=== PATIENT | male | born 1970 | race Hispanic/Latino ===

== ENCOUNTER 2023-12-26 11:41 | Inpatient (IN) | payer BC ==
[~2023-12-26] VITALS: Ht 175.3 cm; Wt 86.2 kg
[2023-12-26 12:57] LABS: BASOPHILS # (AUTO) 0.07 K/uL (0.00-0.20); BASOPHILS % (AUTO) 0.4 % (0.0-5.0); EOSINOPHILS # (AUTO) 0.18 K/uL (0.00-0.70); EOSINOPHILS % (AUTO) 1.1 % (0.0-8.0); IMMATURE GRANULOCYTE ABSOLUTE 0.16 K/uL (0-1); LYMPHOCYTES # (AUTO) 2.4 K/uL (1.0-4.8); MEAN CORPUSCULAR HEMOGLOBIN 29.5 pg (27.0-33.0); MEAN CORPUSCULAR HGB CONC 33.8 g/dL (32.0-36.0); MEAN CORPUSCULAR VOLUME 87.1 fL (79-99); MONOCYTES # (AUTO) 1.2 K/uL (0.1-1.0); MONOCYTES % (AUTO) 7.2 % (3.0-13.0); NEUTROPHILS # (AUTO) 12.1 K/uL (1.8-7.7); NEUTROPHILS % (AUTO) 75.3 % (40.0-77.0); PLATELET COUNT (AUTO) 349 K/uL (130-400); RED BLOOD CELL COUNT(AUTO) 4.48 MIL/uL (4.50-6.20); RED CELL DISTRIBUTION WIDTH 13.3 % (11.0-15.5); WHITE BLOOD COUNT (AUTO) 16.1 K/uL (4.8-10.8)
[2023-12-26 13:07] LABS: INR 0.97 (0.85-1.15); PROTHROMBIN TIME 10.5 SEC (9.6-11.6)
[2023-12-26 13:08] LABS: PARTIAL THROMBOPLASTIN TIME 28.4 SEC (26.3-35.5)
[2023-12-26 13:12] LABS: CREATININE 1.4 mg/dL (0.5-1.3); POTASSIUM 4.3 mmol/L (3.5-5.1)
[2023-12-26 13:24] LABS: ALBUMIN 3.5 g/dL (3.5-5.0); BILIRUBIN,TOTAL 0.6 mg/dL (0.2-1.0); MAGNESIUM 1.7 mg/dL (1.80-2.40); THYROID STIMULATING HORMONE 3.19 uIU/mL (0.36-3.74); TOTAL PROTEIN, SERUM 8.5 g/dL (6.0-8.3)
[2023-12-26 13:25] LABS: HEMOGLOBIN A1C 6.9 % (4.0-6.0)
[2023-12-26] MEDS ORDERED: 0.9% NACL 500ML IV.SOLN 500 ML IV SCH (13:30)
[2023-12-26] MEDS: 0.9%NACL 1000ML 1,000 ML IV SCH (13:51)
[2023-12-26] MEDS: ceFEPime HCL 2 GM VIAL IVPB SCH (13:52)
[2023-12-26] MEDS: LINEZOLID 600 MG/ISO-OSM 300 ML IV SCH (14:00)
[2023-12-26 14:29] LABS: ERYTHROCYTE SEDIMENTATION RATE 84 MM/HR (0-20)
[2023-12-26 15:56] LABS: SARS-CoV-2, RNA, NAAT POSITIVE SARS CoV-2 (NEGATIVE)
[2023-12-26 16:20] VITALS: BP 143/60; PULSE 96; RESP 20; TEMP 98.5
[2023-12-26] MEDS ORDERED: teTANUS/diphthERIA TOXOID [ADULT] 0.5 ML VIAL IM ONE (16:30)
[2023-12-26] MEDS: INSULIN humuLIN R 100 UNIT/ML 3ML SQ SCH (16:30)
[2023-12-26 16:44] LABS: ADD UA MICROSCOPIC YES; APPEARANCE,URINE CLEAR (CLEAR); BILIRUBIN,URINE NEGATIVE (NEGATIVE); COLOR,URINE LIGHT-YELLOW (YELLOW); GLUCOSE, URINE (UA) TRACE mg/dL (NEGATIVE); KETONES,URINE NEGATIVE (NEGATIVE); LEUKOCYTE ESTERASE ,URINE NEGATIVE Leu/uL (NEGATIVE); NITRATE,URINE NEGATIVE (NEGATIVE); OCCULT BLOOD,URINE NEGATIVE (NEGATIVE); PH,URINE 5.5 (5.0-8.0); PROTEIN,URINE 30 mg/dL (NEGATIVE); UROBILINOGEN,URINE 0.2 mg/dL (0.2-1.0)
[2023-12-26 16:50] LABS: RBC,URINE 0-1 /HPF (0-1); SQUAMOUS EPITHELIAL CELL,UR RARE /HPF (0-2); WBC,URINE 0-1 /HPF (0-1)
[2023-12-26 17:45] VITALS: O2SAT 97
[2023-12-26 17:50] VITALS: O2SAT 97
[2023-12-26] MEDS: morPHINE 2 MG SYG IVP PRN (18:26)
[2023-12-26 19:10] VITALS: O2SAT 95
[2023-12-26 20:00] VITALS: BP 166/81; PULSE 107; PULSE 95; RESP 20; TEMP 99.7
[2023-12-26] MEDS: DIPH,PERTUSS(ACELL),TET VAC/PF 0.5 ML VIAL IM ONE (21:42)
[2023-12-26] MEDS: acetaMINOPHEN 500 MG TABLET PO PRN (21:43)
[2023-12-27] VITALS (8 sets, daily range): BP systolic 142–157; BP diastolic 83–89; PULSE 84–95; RESP 16–20; TEMP 98.3–101; O2SAT 95
[2023-12-27 04:01] LABS: BASOPHILS # (AUTO) 0.06 K/uL (0.00-0.20); BASOPHILS % (AUTO) 0.4 % (0.0-5.0); EOSINOPHILS # (AUTO) 0.24 K/uL (0.00-0.70); EOSINOPHILS % (AUTO) 1.7 % (0.0-8.0); IMMATURE GRANULOCYTE ABSOLUTE 0.13 K/uL (0-1); LYMPHOCYTES # (AUTO) 2.1 K/uL (1.0-4.8); LYMPHOCYTES % (AUTO) 15.5 % (21.0-51.0); MEAN CORPUSCULAR HEMOGLOBIN 29.8 pg (27.0-33.0); MEAN CORPUSCULAR HGB CONC 33.1 g/dL (32.0-36.0); MEAN CORPUSCULAR VOLUME 89.9 fL (79-99); MONOCYTES # (AUTO) 1.3 K/uL (0.1-1.0); MONOCYTES % (AUTO) 9.3 % (3.0-13.0); NEUTROPHILS # (AUTO) 9.9 K/uL (1.8-7.7); NEUTROPHILS % (AUTO) 72.2 % (40.0-77.0); PLATELET COUNT (AUTO) 290 K/uL (130-400); RED BLOOD CELL COUNT(AUTO) 3.56 MIL/uL (4.50-6.20); RED CELL DISTRIBUTION WIDTH 13.2 % (11.0-15.5); WHITE BLOOD COUNT (AUTO) 13.7 K/uL (4.8-10.8)
[2023-12-27 04:17] LABS: INR 0.97 (0.85-1.15); PROTHROMBIN TIME 10.5 SEC (9.6-11.6)
[2023-12-27 04:18] LABS: PARTIAL THROMBOPLASTIN TIME 31.9 SEC (26.3-35.5)
[2023-12-27 04:25] LABS: ALBUMIN 2.7 g/dL (3.5-5.0); BILIRUBIN,TOTAL 0.4 mg/dL (0.2-1.0); CREATININE 1.5 mg/dL (0.5-1.3); MAGNESIUM 1.5 mg/dL (1.80-2.40); POTASSIUM 4.1 mmol/L (3.5-5.1); TOTAL PROTEIN, SERUM 6.8 g/dL (6.0-8.3)
[2023-12-27] MEDS: MAGNESIUM 2GM PREMIX 50ML 50 ML IV PRN (05:08)
[2023-12-27] MEDS: cloPIDOgrel 75MG TAB PO SCH (08:22)
[2023-12-27] MEDS: LoSARTan 50 MG TABLET PO SCH (08:22)
[2023-12-27] MEDS: ASPIRIN 81 MG EC TAB PO SCH (08:22)
[2023-12-27] MEDS ORDERED: IODIXANOL 320 MG/ML 100 ML VIAL ONE (08:45)
[2023-12-27] MEDS ORDERED: HEParin-NS 1,000 UNIT/500 ML 0 ML IV ONE (08:45)
[2023-12-27] MEDS ORDERED: LIDOCAINE HCL 400MG/20ML VIAL ONE (08:45)
[2023-12-27] MEDS ORDERED: NITROGLYCERIN 50MG VIAL ONE (08:45)
[2023-12-27] MEDS ORDERED: HEParin 10,000 UNIT/10ML (1,000 UNIT/ML) VIAL ONE (08:46)
[2023-12-27] MEDS ORDERED: niCARDIpine 25MG INJ IV ONE (08:46)
[2023-12-27] MEDS: atorVAStatin 40 MG TABLET PO SCH (21:38)
[2023-12-28] VITALS (15 sets, daily range): BP systolic 140–167; BP diastolic 76–90; PULSE 74–100; RESP 16–20; TEMP 98.6–100.7; O2SAT 98
[2023-12-28 05:50] LABS: BASOPHILS # (AUTO) 0.07 K/uL (0.00-0.20); BASOPHILS % (AUTO) 0.6 % (0.0-5.0); EOSINOPHILS # (AUTO) 0.16 K/uL (0.00-0.70); EOSINOPHILS % (AUTO) 1.3 % (0.0-8.0); HEMATOCRIT 30.4 % (42-54); IMMATURE GRANULOCYTE ABSOLUTE 0.09 K/uL (0-1); LYMPHOCYTES % (AUTO) 15.9 % (21.0-51.0); MEAN CORPUSCULAR HEMOGLOBIN 29.4 pg (27.0-33.0); MEAN CORPUSCULAR HGB CONC 33.9 g/dL (32.0-36.0); MEAN CORPUSCULAR VOLUME 86.9 fL (79-99); MONOCYTES # (AUTO) 1.2 K/uL (0.1-1.0); MONOCYTES % (AUTO) 9.4 % (3.0-13.0); NEUTROPHILS # (AUTO) 9.1 K/uL (1.8-7.7); NEUTROPHILS % (AUTO) 72.1 % (40.0-77.0); PLATELET COUNT (AUTO) 313 K/uL (130-400); RED CELL DISTRIBUTION WIDTH 13.2 % (11.0-15.5); WHITE BLOOD COUNT (AUTO) 12.6 K/uL (4.8-10.8)
[2023-12-28 06:05] LABS: ALBUMIN 2.7 g/dL (3.5-5.0); BILIRUBIN,TOTAL 0.6 mg/dL (0.2-1.0); CREATININE 1.5 mg/dL (0.5-1.3); MAGNESIUM 1.8 mg/dL (1.80-2.40); POTASSIUM 4.3 mmol/L (3.5-5.1); TOTAL PROTEIN, SERUM 7.1 g/dL (6.0-8.3)
[2023-12-28] MEDS ORDERED: LIDOCAINE HCL 400MG/20ML VIAL ONE ×2 (07:35→09:25)
[2023-12-28] MEDS ORDERED: HEParin-NS 1,000 UNIT/500 ML 0 ML IV ONE (07:35)
[2023-12-28] MEDS ORDERED: IODIXANOL 320 MG/ML 100 ML VIAL ONE (07:35)
[2023-12-28] MEDS ORDERED: NITROGLYCERIN 50MG VIAL ONE ×2 (07:36→09:26)
[2023-12-28] MEDS ORDERED: HEParin 10,000 UNIT/10ML (1,000 UNIT/ML) VIAL ONE ×2 (07:38→09:25)
[2023-12-28] MEDS ORDERED: MIDAZOLAM HCL 1 MG/ML 2ML VIAL ONE (07:43)
[2023-12-28] MEDS ORDERED: FENTanyl CITRate PF 50 MCG/1 ML 2ML VIAL ONE (07:43)
[2023-12-28] MEDS ORDERED: IOHEXOL 350 MG/ML 100ML INFUS..BTL IV ONE (09:25)
[2023-12-28] MEDS ORDERED: HEParin-NS 1,000 UNIT/500 ML 1,000 ML IV ONE (09:25)
[2023-12-28] MEDS ORDERED: AEC81 PO (10:11)
[2023-12-28] MEDS ORDERED: CLOP-31 PO (10:11)
[2023-12-28] MEDS ORDERED: SITA100T12 PO (10:11)
[2023-12-28] MEDS ORDERED: METF-444 PO (10:11)
[2023-12-28] MEDS ORDERED: ASCO100033 PO (10:11)
[2023-12-28] MEDS ORDERED: ATOR40TA69 PO (10:11)
[2023-12-28] MEDS ORDERED: LOSA50TA64 PO (10:11)
[2023-12-28] MEDS: MULTIVITAMIN TABLET PO ONE (12:28)
[2023-12-28] MEDS: ZINC SULFATE 220 CAPSULE PO ONE (12:28)
[2023-12-29] VITALS (8 sets, daily range): BP systolic 136–160; BP diastolic 52–87; PULSE 66–96; RESP 17–19; TEMP 97.9–99.2; O2SAT 98
[2023-12-29 06:05] LABS: BASOPHILS # (AUTO) 0.07 K/uL (0.00-0.20); BASOPHILS % (AUTO) 0.6 % (0.0-5.0); EOSINOPHILS # (AUTO) 0.12 K/uL (0.00-0.70); HEMATOCRIT 31.4 % (42-54); IMMATURE GRANULOCYTE ABSOLUTE 0.08 K/uL (0-1); MEAN CORPUSCULAR HEMOGLOBIN 29.4 pg (27.0-33.0); MEAN CORPUSCULAR HGB CONC 33.8 g/dL (32.0-36.0); MEAN CORPUSCULAR VOLUME 87.2 fL (79-99); MONOCYTES # (AUTO) 1.2 K/uL (0.1-1.0); MONOCYTES % (AUTO) 9.7 % (3.0-13.0); NEUTROPHILS % (AUTO) 72.1 % (40.0-77.0); PLATELET COUNT (AUTO) 324 K/uL (130-400); RED CELL DISTRIBUTION WIDTH 13.1 % (11.0-15.5); WHITE BLOOD COUNT (AUTO) 12.5 K/uL (4.8-10.8)
[2023-12-29 06:26] LABS: ALBUMIN 2.6 g/dL (3.5-5.0); BILIRUBIN,TOTAL 0.6 mg/dL (0.2-1.0); CREATININE 1.6 mg/dL (0.5-1.3); MAGNESIUM 1.8 mg/dL (1.80-2.40); POTASSIUM 4.2 mmol/L (3.5-5.1); TOTAL PROTEIN, SERUM 7.1 g/dL (6.0-8.3)
[2023-12-29] MEDS: ASCORBIC ACID 500 MG TAB PO SCH (10:18)
[2023-12-29] MEDS: ZINC SULFATE 220 CAPSULE PO SCH (10:18)
[2023-12-29] MEDS: MULTIVITAMIN TABLET PO SCH (10:18)
[2023-12-30] VITALS: BP 165/85; PULSE 87; RESP 17; TEMP 98.9
[2023-12-30 04:00] VITALS: BP 142/79; PULSE 82; RESP 17; TEMP 99.6
[2023-12-30 04:13] LABS: BASOPHILS # (AUTO) 0.08 K/uL (0.00-0.20); BASOPHILS % (AUTO) 0.6 % (0.0-5.0); EOSINOPHILS # (AUTO) 0.25 K/uL (0.00-0.70); HEMATOCRIT 34.8 % (42-54); IMMATURE GRANULOCYTE ABSOLUTE 0.08 K/uL (0-1); LYMPHOCYTES # (AUTO) 2.4 K/uL (1.0-4.8); LYMPHOCYTES % (AUTO) 19.6 % (21.0-51.0); MEAN CORPUSCULAR HEMOGLOBIN 29.5 pg (27.0-33.0); MEAN CORPUSCULAR HGB CONC 33.3 g/dL (32.0-36.0); MEAN CORPUSCULAR VOLUME 88.5 fL (79-99); MONOCYTES # (AUTO) 1.1 K/uL (0.1-1.0); MONOCYTES % (AUTO) 9.2 % (3.0-13.0); NEUTROPHILS # (AUTO) 8.4 K/uL (1.8-7.7); PLATELET COUNT (AUTO) 374 K/uL (130-400); RED BLOOD CELL COUNT(AUTO) 3.93 MIL/uL (4.50-6.20); RED CELL DISTRIBUTION WIDTH 12.9 % (11.0-15.5); WHITE BLOOD COUNT (AUTO) 12.3 K/uL (4.8-10.8)
[2023-12-30 04:44] LABS: ALBUMIN 2.7 g/dL (3.5-5.0); BILIRUBIN,TOTAL 0.6 mg/dL (0.2-1.0); CREATININE 1.5 mg/dL (0.5-1.3); MAGNESIUM 1.8 mg/dL (1.80-2.40); POTASSIUM 4.4 mmol/L (3.5-5.1); TOTAL PROTEIN, SERUM 7.7 g/dL (6.0-8.3)
[2023-12-30 08:00] VITALS: BP 149/88; PULSE 89; RESP 18; TEMP 98.7; O2SAT 96
[2023-12-30 12:00] VITALS: BP_SYST 149; BP_SYST 151; BP_DIAS 82; BP_DIAS 91; PULSE 84; PULSE 89; RESP 18; RESP 20; TEMP 98.5; TEMP 98.7
[2023-12-30 16:00] VITALS: BP 149/82; PULSE 84; RESP 20; TEMP 98.5
[2023-12-30 20:00] VITALS: BP 141/88; PULSE 90; RESP 19; TEMP 97.8; O2SAT 96
[2023-12-30] MEDS: SENNOSIDES 8.6 MG TABLET PO SCH (20:47)
[2023-12-30] MEDS: doCUSate SODIUM 100 MG CAP PO SCH (20:50)
[2023-12-31] VITALS (8 sets, daily range): BP systolic 138–155; BP diastolic 66–87; PULSE 78–90; RESP 16–20; TEMP 98–100.1; O2SAT 99
[2023-12-31 04:36] LABS: BASOPHILS # (AUTO) 0.08 K/uL (0.00-0.20); BASOPHILS % (AUTO) 0.7 % (0.0-5.0); EOSINOPHILS # (AUTO) 0.17 K/uL (0.00-0.70); EOSINOPHILS % (AUTO) 1.6 % (0.0-8.0); IMMATURE GRANULOCYTE ABSOLUTE 0.07 K/uL (0-1); LYMPHOCYTES # (AUTO) 2.2 K/uL (1.0-4.8); MEAN CORPUSCULAR HEMOGLOBIN 29.7 pg (27.0-33.0); MEAN CORPUSCULAR HGB CONC 33.6 g/dL (32.0-36.0); MEAN CORPUSCULAR VOLUME 88.2 fL (79-99); MONOCYTES # (AUTO) 1.1 K/uL (0.1-1.0); MONOCYTES % (AUTO) 9.8 % (3.0-13.0); NEUTROPHILS # (AUTO) 7.3 K/uL (1.8-7.7); NEUTROPHILS % (AUTO) 67.3 % (40.0-77.0); PLATELET COUNT (AUTO) 377 K/uL (130-400); RED BLOOD CELL COUNT(AUTO) 3.74 MIL/uL (4.50-6.20); RED CELL DISTRIBUTION WIDTH 13.1 % (11.0-15.5); WHITE BLOOD COUNT (AUTO) 10.8 K/uL (4.8-10.8)
[2023-12-31 04:41] LABS: INR 1.01 (0.85-1.15); PROTHROMBIN TIME 10.9 SEC (9.6-11.6)
[2023-12-31 04:42] LABS: PARTIAL THROMBOPLASTIN TIME 31.9 SEC (26.3-35.5)
[2023-12-31 04:43] LABS: ALBUMIN 2.5 g/dL (3.5-5.0); BILIRUBIN,TOTAL 0.6 mg/dL (0.2-1.0); CREATININE 1.5 mg/dL (0.5-1.3); MAGNESIUM 2.1 mg/dL (1.80-2.40); POTASSIUM 4.2 mmol/L (3.5-5.1); TOTAL PROTEIN, SERUM 7.6 g/dL (6.0-8.3)
[2023-12-31] MEDS: ZOSYN 3.375GM +NS 50ML IVPB SCH (10:29)
[2023-12-31] MEDS ORDERED: RENAL DOSE IV PRN (16:00)
[2023-12-31 21:24] LABS: CREATININE,URINE RANDOM 49.32 mg/dL (30-135); PROTEIN,URINE RANDOM 25.6 mg/dL (0-11.9)
[2023-12-31] MEDS: morPHINE 2 MG SYG IVP PRN (22:04)
[2023-12-31] MEDS: morPHINE 2 MG SYG ONE (22:05)
[2024-01-01] VITALS (17 sets, daily range): BP systolic 118–155; BP diastolic 69–88; PULSE 72–92; RESP 17–20; TEMP 97.8–99; O2SAT 95
[2024-01-01 05:24] LABS: BASOPHILS # (AUTO) 0.06 K/uL (0.00-0.20); BASOPHILS % (AUTO) 0.6 % (0.0-5.0); EOSINOPHILS # (AUTO) 0.25 K/uL (0.00-0.70); EOSINOPHILS % (AUTO) 2.4 % (0.0-8.0); HEMATOCRIT 32.7 % (42-54); IMMATURE GRANULOCYTE ABSOLUTE 0.09 K/uL (0-1); LYMPHOCYTES # (AUTO) 1.6 K/uL (1.0-4.8); LYMPHOCYTES % (AUTO) 15.8 % (21.0-51.0); MEAN CORPUSCULAR VOLUME 87.9 fL (79-99); MONOCYTES # (AUTO) 0.9 K/uL (0.1-1.0); MONOCYTES % (AUTO) 8.8 % (3.0-13.0); NEUTROPHILS # (AUTO) 7.3 K/uL (1.8-7.7); NEUTROPHILS % (AUTO) 71.5 % (40.0-77.0); PLATELET COUNT (AUTO) 357 K/uL (130-400); RED BLOOD CELL COUNT(AUTO) 3.72 MIL/uL (4.50-6.20); WHITE BLOOD COUNT (AUTO) 10.2 K/uL (4.8-10.8)
[2024-01-01 05:45] LABS: CREATININE 1.5 mg/dL (0.5-1.3); POTASSIUM 4.5 mmol/L (3.5-5.1)
[2024-01-01] MEDS: INSULIN GLARgine 100 UNITS/ML 10 ML VIAL SQ SCH (08:32)
[2024-01-01] MEDS ORDERED: LIDOCAINE HCL 400MG/20ML VIAL ONE (12:34)
[2024-01-01] MEDS ORDERED: IODIXANOL 320 MG/ML 100 ML VIAL ONE (12:34)
[2024-01-01] MEDS ORDERED: HEParin 10,000 UNIT/10ML (1,000 UNIT/ML) VIAL ONE (12:34)
[2024-01-01] MEDS ORDERED: NITROGLYCERIN 50MG VIAL ONE (12:35)
[2024-01-01] MEDS ORDERED: HEParin-NS 1,000 UNIT/500 ML 1,000 ML IV ONE (12:35)
[2024-01-01] MEDS ORDERED: MIDAZOLAM HCL 1 MG/ML 2ML VIAL ONE (13:11)
[2024-01-01] MEDS ORDERED: FENTanyl CITRate PF 50 MCG/1 ML 2ML VIAL ONE (13:11)
[2024-01-01] MEDS ORDERED: IOHEXOL-350 50ML VIAL IV ONE (14:10)
[2024-01-01] MEDS ORDERED: cloPIDOgrel 300MG TAB ONE (14:17)
[2024-01-01] MEDS ORDERED: 0.9%NACL 1000ML 1,000 ML IV SCH (14:30)
[2024-01-02] VITALS (21 sets, daily range): BP systolic 113–151; BP diastolic 65–84; PULSE 70–95; RESP 14–18; TEMP 98–98.9
[2024-01-02 05:58] LABS: BASOPHILS % (AUTO) 0.9 % (0.0-5.0); EOSINOPHILS # (AUTO) 0.31 K/uL (0.00-0.70); EOSINOPHILS % (AUTO) 2.7 % (0.0-8.0); IMMATURE GRANULOCYTE ABSOLUTE 0.11 K/uL (0-1); LYMPHOCYTES # (AUTO) 1.6 K/uL (1.0-4.8); MEAN CORPUSCULAR HEMOGLOBIN 29.6 pg (27.0-33.0); MEAN CORPUSCULAR HGB CONC 33.7 g/dL (32.0-36.0); MONOCYTES # (AUTO) 1.1 K/uL (0.1-1.0); MONOCYTES % (AUTO) 9.5 % (3.0-13.0); NEUTROPHILS # (AUTO) 8.3 K/uL (1.8-7.7); NEUTROPHILS % (AUTO) 71.9 % (40.0-77.0); PLATELET COUNT (AUTO) 349 K/uL (130-400); RED BLOOD CELL COUNT(AUTO) 3.41 MIL/uL (4.50-6.20); RED CELL DISTRIBUTION WIDTH 13.2 % (11.0-15.5); WHITE BLOOD COUNT (AUTO) 11.5 K/uL (4.8-10.8)
[2024-01-02 06:19] LABS: ALBUMIN 2.3 g/dL (3.5-5.0); BILIRUBIN,TOTAL 0.6 mg/dL (0.2-1.0); CREATININE 1.6 mg/dL (0.5-1.3); MAGNESIUM 1.8 mg/dL (1.80-2.40); POTASSIUM 4.2 mmol/L (3.5-5.1); TOTAL PROTEIN, SERUM 7.2 g/dL (6.0-8.3)
[2024-01-02] MEDS ORDERED: MIDAZOLAM HCL 1 MG/ML 2ML VIAL ONE (06:48)
[2024-01-02] MEDS ORDERED: FENTanyl CITRate PF 50 MCG/1 ML 2ML VIAL ONE (06:48)
[2024-01-02] MEDS ORDERED: proPOFol 10 MG/ML 20ML VIAL IV ONE (06:48)
[2024-01-02] MEDS ORDERED: ondanSETRON 4MG INJ ONE (07:10)
[2024-01-02] MEDS: LIDOCAINE HCL 1% 20 ML VIAL INJ ONE (07:39)
[2024-01-02 14:16] LABS: INR 1.05 (0.85-1.15); PROTHROMBIN TIME 11.3 SEC (9.6-11.6)
[2024-01-02] MEDS: ondanSETRON 4MG INJ IVP PRN (22:31)
[2024-01-03] VITALS (8 sets, daily range): BP systolic 131–150; BP diastolic 67–86; PULSE 80–93; RESP 16–20; TEMP 98.1–100.2; O2SAT 95–97
[2024-01-03 06:16] LABS: BASOPHILS # (AUTO) 0.07 K/uL (0.00-0.20); BASOPHILS % (AUTO) 0.6 % (0.0-5.0); EOSINOPHILS # (AUTO) 0.24 K/uL (0.00-0.70); HEMATOCRIT 29.9 % (42-54); LYMPHOCYTES # (AUTO) 2.3 K/uL (1.0-4.8); LYMPHOCYTES % (AUTO) 18.7 % (21.0-51.0); MEAN CORPUSCULAR HEMOGLOBIN 29.2 pg (27.0-33.0); MEAN CORPUSCULAR HGB CONC 33.4 g/dL (32.0-36.0); MEAN CORPUSCULAR VOLUME 87.4 fL (79-99); MONOCYTES # (AUTO) 1.1 K/uL (0.1-1.0); MONOCYTES % (AUTO) 9.4 % (3.0-13.0); NEUTROPHILS # (AUTO) 8.3 K/uL (1.8-7.7); NEUTROPHILS % (AUTO) 68.5 % (40.0-77.0); PLATELET COUNT (AUTO) 335 K/uL (130-400); RED BLOOD CELL COUNT(AUTO) 3.42 MIL/uL (4.50-6.20); RED CELL DISTRIBUTION WIDTH 13.4 % (11.0-15.5); WHITE BLOOD COUNT (AUTO) 12.1 K/uL (4.8-10.8)
[2024-01-03 06:36] LABS: ALBUMIN 2.3 g/dL (3.5-5.0); BILIRUBIN,TOTAL 0.5 mg/dL (0.2-1.0); CREATININE 1.7 mg/dL (0.5-1.3); POTASSIUM 4.1 mmol/L (3.5-5.1); TOTAL PROTEIN, SERUM 7.2 g/dL (6.0-8.3)
[2024-01-03 11:21] LABS: INR 1.08 (0.85-1.15); PROTHROMBIN TIME 11.6 SEC (9.6-11.6)
[2024-01-03 11:22] LABS: PARTIAL THROMBOPLASTIN TIME 33.2 SEC (26.3-35.5)
[2024-01-03] MEDS: 0.9%NACL 10ML VIAL IV SCH (22:37)
[2024-01-04] VITALS (7 sets, daily range): BP systolic 106–153; BP diastolic 70–77; PULSE 64–87; RESP 16–20; TEMP 98.2–98.9; O2SAT 97–98
[2024-01-04] MEDS: polyETHYLene GLYCol 3350 17 GM POWD.PACK PO ONE (15:05)
[2024-01-04] MEDS: LACTULOSE 20 GM/30 ML UDCUP PO PRN (22:51)
[2024-01-05] VITALS (7 sets, daily range): BP systolic 132–142; BP diastolic 77–89; PULSE 77–91; RESP 16–20; TEMP 98–99; O2SAT 96–97
[2024-01-05 04:34] LABS: BASOPHILS # (AUTO) 0.05 K/uL (0.00-0.20); BASOPHILS % (AUTO) 0.4 % (0.0-5.0); EOSINOPHILS % (AUTO) 2.5 % (0.0-8.0); HEMATOCRIT 28.2 % (42-54); IMMATURE GRANULOCYTE ABSOLUTE 0.08 K/uL (0-1); LYMPHOCYTES # (AUTO) 2.1 K/uL (1.0-4.8); LYMPHOCYTES % (AUTO) 17.7 % (21.0-51.0); MEAN CORPUSCULAR HEMOGLOBIN 28.9 pg (27.0-33.0); MEAN CORPUSCULAR HGB CONC 33.3 g/dL (32.0-36.0); MEAN CORPUSCULAR VOLUME 86.8 fL (79-99); MONOCYTES % (AUTO) 8.7 % (3.0-13.0); NEUTROPHILS # (AUTO) 8.4 K/uL (1.8-7.7); PLATELET COUNT (AUTO) 308 K/uL (130-400); RED BLOOD CELL COUNT(AUTO) 3.25 MIL/uL (4.50-6.20); RED CELL DISTRIBUTION WIDTH 13.3 % (11.0-15.5)
[2024-01-05 05:07] LABS: ALBUMIN 2.2 g/dL (3.5-5.0); BILIRUBIN,TOTAL 0.5 mg/dL (0.2-1.0); CREATININE 1.7 mg/dL (0.5-1.3); POTASSIUM 4.1 mmol/L (3.5-5.1); TOTAL PROTEIN, SERUM 7.1 g/dL (6.0-8.3)
[2024-01-05] MEDS ORDERED: GLUCAGON 1MG KIT 1 MG ML IM PRN (08:30)
[2024-01-05] MEDS ORDERED: DEXTROSE 50%-WATER 50 ML DISP.SYRIN IV PRN (08:30)
[2024-01-05] MEDS ORDERED: LACTULOSE 20 GM/30 ML UDCUP PO PRN (09:00)
[2024-01-05] MEDS: INSULIN humuLIN R 100 UNIT/ML 3ML SQ SCH (11:30)
[2024-01-05] MEDS: 0.9%NACL 1000ML 1,000 ML IV SCH (21:53)
[2024-01-06] VITALS (7 sets, daily range): BP systolic 135–156; BP diastolic 78–100; PULSE 75–82; RESP 16–20; TEMP 98.2–98.9; O2SAT 97–99
[2024-01-06] MEDS: LINEZOLID 600 MG/ISO-OSM 300 ML IV SCH (00:02)
[2024-01-06] MEDS: morPHINE 2 MG SYG IVP PRN (06:25)
[2024-01-07] VITALS: BP 152/80; PULSE 80; RESP 16; TEMP 98.3
[2024-01-07 03:52] VITALS: BP 149/84; PULSE 82; RESP 16; TEMP 98.5
[2024-01-07 05:30] LABS: BASOPHILS # (AUTO) 0.05 K/uL (0.00-0.20); BASOPHILS % (AUTO) 0.5 % (0.0-5.0); EOSINOPHILS # (AUTO) 0.39 K/uL (0.00-0.70); HEMATOCRIT 28.5 % (42-54); IMMATURE GRANULOCYTE ABSOLUTE 0.07 K/uL (0-1); LYMPHOCYTES # (AUTO) 2.2 K/uL (1.0-4.8); LYMPHOCYTES % (AUTO) 22.2 % (21.0-51.0); MEAN CORPUSCULAR HEMOGLOBIN 29.2 pg (27.0-33.0); MEAN CORPUSCULAR HGB CONC 32.6 g/dL (32.0-36.0); MEAN CORPUSCULAR VOLUME 89.6 fL (79-99); MONOCYTES # (AUTO) 0.8 K/uL (0.1-1.0); MONOCYTES % (AUTO) 7.8 % (3.0-13.0); NEUTROPHILS # (AUTO) 6.4 K/uL (1.8-7.7); NEUTROPHILS % (AUTO) 64.8 % (40.0-77.0); PLATELET COUNT (AUTO) 293 K/uL (130-400); RED BLOOD CELL COUNT(AUTO) 3.18 MIL/uL (4.50-6.20); RED CELL DISTRIBUTION WIDTH 13.2 % (11.0-15.5); WHITE BLOOD COUNT (AUTO) 9.9 K/uL (4.8-10.8)
[2024-01-07 05:48] LABS: CREATININE 1.2 mg/dL (0.5-1.3)
[2024-01-07 08:00] VITALS: BP 150/86; PULSE 79; RESP 20; TEMP 97.8; O2SAT 99
[2024-01-07 12:00] VITALS: BP 150/86; PULSE 84; RESP 20; TEMP 97.6
[2024-01-07 16:00] VITALS: BP 163/84; PULSE 80; RESP 20; TEMP 98.8
[2024-01-07 20:00] VITALS: BP 145/77; PULSE 85; RESP 18; TEMP 98.7; O2SAT 98
[2024-01-07] MEDS: LoSARTan 50 MG TABLET PO SCH (20:39)
[2024-01-08] VITALS (7 sets, daily range): BP systolic 108–154; BP diastolic 76–91; PULSE 68–93; RESP 17–20; TEMP 97.6–98.7; O2SAT 97–98
[2024-01-09] VITALS (11 sets, daily range): BP systolic 129–168; BP diastolic 78–93; PULSE 75–95; RESP 17–20; TEMP 97.6–99.5; O2SAT 98–99
[2024-01-09] MEDS: LINEZOLID 600 MG/ISO-OSM 300 ML IV SCH (04:05)
[2024-01-09] MEDS: 0.9%NACL 1000ML 1,000 ML IV SCH (09:54)
[2024-01-09] MEDS ORDERED: LIDOCAINE HCL 400MG/20ML VIAL ONE (12:32)
[2024-01-09] MEDS ORDERED: MIDAZOLAM HCL 1 MG/ML 2ML VIAL ONE (12:33)
[2024-01-09] MEDS ORDERED: HEParin 10,000 UNIT/10ML (1,000 UNIT/ML) VIAL ONE (12:33)
[2024-01-09] MEDS ORDERED: IODIXANOL 320 MG/ML 100 ML VIAL ONE (12:33)
[2024-01-09] MEDS ORDERED: FENTanyl CITRate PF 50 MCG/1 ML 2ML VIAL ONE (12:33)
[2024-01-09] MEDS ORDERED: HEParin-NS 1,000 UNIT/500 ML 1,000 ML IV ONE (12:34)
[2024-01-09] MEDS ORDERED: NITROGLYCERIN 50MG VIAL ONE (12:39)
[2024-01-09] MEDS ORDERED: hydrALAZine 20MG/ML VIAL ONE (13:30)
[2024-01-10] VITALS (25 sets, daily range): BP systolic 110–160; BP diastolic 63–91; PULSE 65–96; RESP 15–20; TEMP 97.3–98.4; O2SAT 98–99
[2024-01-10 05:22] LABS: BASOPHILS # (AUTO) 0.07 K/uL (0.00-0.20); BASOPHILS % (AUTO) 0.8 % (0.0-5.0); EOSINOPHILS % (AUTO) 3.3 % (0.0-8.0); HEMATOCRIT 27.8 % (42-54); IMMATURE GRANULOCYTE ABSOLUTE 0.06 K/uL (0-1); LYMPHOCYTES # (AUTO) 2.1 K/uL (1.0-4.8); LYMPHOCYTES % (AUTO) 22.9 % (21.0-51.0); MEAN CORPUSCULAR HEMOGLOBIN 28.3 pg (27.0-33.0); MEAN CORPUSCULAR HGB CONC 32.7 g/dL (32.0-36.0); MEAN CORPUSCULAR VOLUME 86.6 fL (79-99); MONOCYTES # (AUTO) 0.8 K/uL (0.1-1.0); MONOCYTES % (AUTO) 8.5 % (3.0-13.0); NEUTROPHILS # (AUTO) 5.7 K/uL (1.8-7.7); NEUTROPHILS % (AUTO) 63.8 % (40.0-77.0); PLATELET COUNT (AUTO) 363 K/uL (130-400); RED BLOOD CELL COUNT(AUTO) 3.21 MIL/uL (4.50-6.20); RED CELL DISTRIBUTION WIDTH 13.4 % (11.0-15.5)
[2024-01-10 05:30] LABS: INR 1.1 (0.85-1.15); PROTHROMBIN TIME 11.8 SEC (9.6-11.6)
[2024-01-10 05:32] LABS: PARTIAL THROMBOPLASTIN TIME 30.2 SEC (26.3-35.5)
[2024-01-10 05:33] LABS: ALBUMIN 2.1 g/dL (3.5-5.0); BILIRUBIN,TOTAL 0.4 mg/dL (0.2-1.0); CREATININE 1.4 mg/dL (0.5-1.3); POTASSIUM 4.2 mmol/L (3.5-5.1)
[2024-01-10] MEDS: 0.9%NACL 1000ML 1,000 ML IV ONE (06:39)
[2024-01-10] MEDS: FAMOTIDINE 20MG VIAL IV ONE (06:41)
[2024-01-10] MEDS: acetaMINOPHEN 1,000 MG/100 ML VIAL IV ONE (06:41)
[2024-01-10] MEDS ORDERED: MIDAZOLAM HCL 1 MG/ML 2ML VIAL ONE (06:43)
[2024-01-10] MEDS ORDERED: BUPIvacaine/PF 0.5% 30ML VIAL ONE (06:43)
[2024-01-10] MEDS ORDERED: proPOFol 10 MG/ML 20ML VIAL IV ONE (06:43)
[2024-01-10] MEDS ORDERED: LIDOCAINE HCL 1% 20 ML VIAL ONE (06:43)
[2024-01-10] MEDS ORDERED: LIDOCAINE PF 100MG/5ML (2%) SYRINGE 5ML ONE (06:43)
[2024-01-10] MEDS ORDERED: FENTanyl CITRate PF 50 MCG/1 ML 2ML VIAL ONE (06:43)
[2024-01-10] MEDS ORDERED: dexaMETHasone SOD PHOSPHATE 4 MG/ML 1ML VIAL ONE (06:53)
[2024-01-10] MEDS ORDERED: ondanSETRON 4MG INJ ONE (06:53)
[2024-01-10] MEDS: BUPIvacaine/PF 0.5% 30ML VIAL INJ ONE (06:55)
[2024-01-10] MEDS ORDERED: BACITRACIN 28.4 GM OINT TP ONE (07:16)
[2024-01-10] MEDS ORDERED: 0.9%NACL 50ML IV SCH (21:00)
[2024-01-10] MEDS: ZOSYN 3.375GM +NS 50ML IVPB SCH (21:12)
[2024-01-11] VITALS: BP 145/79; PULSE 76; RESP 20; TEMP 98.2
[2024-01-11 04:00] VITALS: BP 139/76; PULSE 73; RESP 18; TEMP 98.3
[2024-01-11 05:03] LABS: BASOPHILS # (AUTO) 0.05 K/uL (0.00-0.20); BASOPHILS % (AUTO) 0.5 % (0.0-5.0); EOSINOPHILS # (AUTO) 0.27 K/uL (0.00-0.70); EOSINOPHILS % (AUTO) 2.8 % (0.0-8.0); HEMATOCRIT 27.5 % (42-54); IMMATURE GRANULOCYTE ABSOLUTE 0.05 K/uL (0-1); LYMPHOCYTES % (AUTO) 30.5 % (21.0-51.0); MEAN CORPUSCULAR HEMOGLOBIN 28.6 pg (27.0-33.0); MEAN CORPUSCULAR HGB CONC 33.1 g/dL (32.0-36.0); MEAN CORPUSCULAR VOLUME 86.5 fL (79-99); MONOCYTES # (AUTO) 0.7 K/uL (0.1-1.0); MONOCYTES % (AUTO) 7.4 % (3.0-13.0); NEUTROPHILS # (AUTO) 5.7 K/uL (1.8-7.7); NEUTROPHILS % (AUTO) 58.3 % (40.0-77.0); PLATELET COUNT (AUTO) 350 K/uL (130-400); RED BLOOD CELL COUNT(AUTO) 3.18 MIL/uL (4.50-6.20); RED CELL DISTRIBUTION WIDTH 13.2 % (11.0-15.5); WHITE BLOOD COUNT (AUTO) 9.7 K/uL (4.8-10.8)
[2024-01-11 05:19] LABS: ALBUMIN 2.1 g/dL (3.5-5.0); BILIRUBIN,TOTAL 0.3 mg/dL (0.2-1.0); CREATININE 1.5 mg/dL (0.5-1.3); POTASSIUM 3.9 mmol/L (3.5-5.1); TOTAL PROTEIN, SERUM 6.9 g/dL (6.0-8.3)
[2024-01-11 08:59] VITALS: O2SAT 98
[2024-01-11] MEDS: MUPIROCIN OINTMENT 22 GM TUBE TP SCH (08:59)
[2024-01-11 09:00] VITALS: BP 146/79; PULSE 72; RESP 18; TEMP 97.9
[2024-01-11 11:20] VITALS: BP 137/79; PULSE 80; RESP 18; TEMP 98.3
== END 2024-01-11 12:30 | DRG 853 ==
LOC: EDH 11:41 → EDHIP 11:42 → 4AH 16:20 → 3AH 12-27 16:00
PROVIDERS: ADMIT Internal Medicine; ATTEND Internal Medicine
PROC: 3E0234Z Introduction of Serum, Toxoid and Vaccine into Muscle, Percutaneous Approach (ICD-10-PCS; 2023-12-26)
PROC: B41F1ZZ Fluoroscopy of Right Lower Extremity Arteries using Low Osmolar Contrast (ICD-10-PCS; principal; 2023-12-28)
PROC: B41G1ZZ Fluoroscopy of Left Lower Extremity Arteries using Low Osmolar Contrast (ICD-10-PCS; 2023-12-28)
PROC: B4101ZZ Fluoroscopy of Abdominal Aorta using Low Osmolar Contrast (ICD-10-PCS; 2023-12-28)
PROC: 047T3ZZ Dilation of Right Peroneal Artery, Percutaneous Approach (ICD-10-PCS; 2024-01-01)
PROC: B4101ZZ Fluoroscopy of Abdominal Aorta using Low Osmolar Contrast (ICD-10-PCS; 2024-01-01)
PROC: B41F1ZZ Fluoroscopy of Right Lower Extremity Arteries using Low Osmolar Contrast (ICD-10-PCS; 2024-01-01)
PROC: 0QBQ0ZZ Excision of Right Toe Phalanx, Open Approach (ICD-10-PCS; 2024-01-02)
PROC: 0QBN0ZZ Excision of Right Metatarsal, Open Approach (ICD-10-PCS; 2024-01-02)
PROC: 02HV33Z Insertion of Infusion Device into Superior Vena Cava, Percutaneous Approach (ICD-10-PCS; 2024-01-03)
PROC: 0Y6X0Z0 Detachment at Right 5th Toe, Complete, Open Approach (ICD-10-PCS; 2024-01-10)
DX: A41.89 Other specified sepsis (principal); U07.1 COVID-19; E87.20 Acidosis, unspecified; L03.115 Cellulitis of right lower limb; N17.9 Acute kidney failure, unspecified; M86.8X7 Other osteomyelitis, ankle and foot; I70.261 Atherosclerosis of native arteries of extremities with gangrene, right leg; E11.52 Type 2 diabetes mellitus with diabetic peripheral angiopathy with gangrene; E11.621 Type 2 diabetes mellitus with foot ulcer; L97.509 Non-pressure chronic ulcer of other part of unspecified foot with unspecified severity; E78.5 Hyperlipidemia, unspecified; E11.69 Type 2 diabetes mellitus with other specified complication; E66.9 Obesity, unspecified; E78.00 Pure hypercholesterolemia, unspecified; I12.9 Hypertensive chronic kidney disease with stage 1 through stage 4 chronic kidney disease, or unspecified chronic kidney disease; L97.519 Non-pressure chronic ulcer of other part of right foot with unspecified severity; E11.22 Type 2 diabetes mellitus with diabetic chronic kidney disease; I25.10 Atherosclerotic heart disease of native coronary artery without angina pectoris; N18.9 Chronic kidney disease, unspecified; Z82.49 Family history of ischemic heart disease and other diseases of the circulatory system; Z83.3 Family history of diabetes mellitus; Z86.16 Personal history of COVID-19; Z88.1 Allergy status to other antibiotic agents; Z95.1 Presence of aortocoronary bypass graft; Z23 Encounter for immunization
CPT/HCPCS: 36140; 36246; 36415; 36569; 37228; 71045; 73630; 73718; 75710; 75716; 76770; 80048; 80053; 81001; 82550; 82570; 82948; 83036; 83605; 83735; 84100; 84145; 84156; 84443; 85025; 85347; 85610; 85651; 85730; 86140; 87070; 87076; 87086; 87186; 87205; 87635; 88305; 88311; 90715; 93005; 93306; 93356; 93926; 99156; 99157; C1760; C1769; C1893; C1894; G0378; J0360; J0692; J1100; J1644; J1815; J2001; J2020; J2250; J2270; J2405; J2543; J2704; J3010; J3475; J3490; J7030; Q9967; A4216; A4222; A4223; A4649; A4930; A6209; A6260; A6446; C1725; C1887; J0665